=== PATIENT | female | born 1975 | race Caucasian/White ===

== ENCOUNTER → 2024-01-26 19:22 | Outpatient (REF) | payer OTHER, SELFPAY | LOC: MRI 19:22 | PROVIDERS: ATTENDING PHYSICIAN Psychiatry & Neurology Neurology; FAMILY PHYSICIAN Internal Medicine | DX: R90.82 White matter disease, unspecified (principal) | CPT/HCPCS: 70551; 72141; 72146 ==

== ENCOUNTER 2024-05-18 22:28 | Emergency (ER) | payer OTHER, SELFPAY ==
[2024-05-18 22:30] VITALS: BP 160/99
[2024-05-18 22:44] LABS: Urine Albumin Negative (Neg - Trace); Urine Bilirubin Negative (Negative); Urine Character Clear (Clear); Urine Color Yellow; Urine Glucose Negative (Negative); Urine Ketone Negative (Negative); Urine Leukocyte Negative (Negative); Urine Nitrite Negative (Negative); Urine Occult Blood Negative (Negative); Urine Specific Gravity 1.015 (<1.030); Urine Urobilinogen Negative (Neg - 1+)
[2024-05-18 23:28] VITALS: BMI 21.8
[2024-05-18 23:39] LABS: % Basophils 0.5 % (0-2); % Eosinophils 1.4 % (0-6); % Immature Granulocytes 0.3 % (0-0.5); % Lymphocytes 32.1 % (20.5-51.1); % Monocytes 9.8 % (1.7-9.3); % Neutrophils 55.9 % (42.2-75.2); Absolute Eosinophils 0.1 10^3/uL (0-0.7); Absolute Lymphocytes 2.5 10^3/uL (1.2-3.4); Absolute Monocytes 0.8 10^3/uL (0.1-0.6); Absolute Neutrophils 4.3 10^3/uL (1.4-6.5); Hemoglobin 12.8 g/dL (12.0-16.0); Mean Corp Hgb Conc. 36.6 g/dL (33.0-37.0); Mean Corpuscular Hgb 32.7 pg (27.0-31.0); Mean Corpuscular Volume 89.5 fL (81.0-99.0); Mean Platelet Volume 9.2 fL (7.4-10.4); Nucleated Red Blood Cells % 0 %; Platelet Count 257 10^3/uL (130-400); Red Blood Cell Count 3.91 10^6/uL (4.20-5.40); Red Cell Dist. Width 12.6 % (11.5-14.5); White Blood Cell Count 7.7 10^3/uL (4.8-10.8)
[2024-05-18] MEDS: MORPHINE SULFATE 4 MG IV (23:39)
--- NOTE | 2024-05-18 23:39 | ED.GENMED ---
History of Present Illness
<BHARTI Rai - Last Filed: 05/19/24 04:54>
General
Chief Complaint: Flank Pain
Source: patient
Exam Limitations: none
Time Seen by Provider: 05/18/24 23:29
Nursing documentation reviewed up to this point in time: agreed with
History of Present Illness
History of Present Illness:
49 year old female presents for evaluation of R flank pain and N/V. Pt reports that her symptoms began one week ago and have been intermittent over this time. She adds that she has experienced 5 episodes of sudden onset flank pain lasting for
approximately 5-10 minutes over the last week, but at approximately 1900 on 05/18 her flank pain persisted for several hours, prompting her ED arrival. Pt endorses 4 bouts of vomiting accompanying her pain over the last week, but has not vomited on
05/18. Pt has received morphine and states that her pain is currently 0/10. Pt denies dysuria, hematuria, increased frequency, urgency, and hesitancy. She also denies fever, chills, fatigue, CP, SOB, recent back injury, numbness/tingling, and
bowel/bladder incontinence. LMP was 10 days ago per pt.
Past History
<BHARTI Rai - Last Filed: 05/19/24 04:54>
Past History
ED Past Medical History: None
ED Past Surgical History: Other (abdominal plasy, , breast augmentation)
Social History
Tobacco: Non-smoker
Drug: None
Personal:
Living: with family
Review of Systems
<BHARTI Rai - Last Filed: 05/19/24 04:54>
Review of Systems
Allergies reviewed?: Yes
Constitutional: Reports no symptoms
EENT: Reports no symptoms
Respiratory: Reports no symptoms
Cardiac: Reports no symptoms
ABD/GI: Reports nausea and vomiting
: Reports flank pain (right)
Musculoskeletal: Reports back pain (right low back)
Skin: Reports no symptoms
Neurological: Reports no symptoms
Phy Exam
<BHARTI Rai - Last Filed: 05/19/24 04:54>
General Physical Exam
General Presentation: well appearing
General age: appears stated age
General Skin: warm
General Habitus: normal
General Mental: alert
General Hydration: appears well hydrated
Cardiovascular Exam
Cardiovascular Exam: regular rate/rhythm and no murmur
Pulmonary Exam
Pulmonary Exam: lungs clear and no respiratory distress
Gastrointestinal Exam
Gastrointestinal Exam: normal bowel sounds, non tender, non distended, no cva tenderness and no masses
Neurological Exam
Neurological Exam: alert and oriented x3
Musculoskeletal Exam
Musculoskeletal Exam: full ROM
Course
<BHARTI Rai - Last Filed: 05/19/24 04:54>
Orders/Labs/Results
Orders:
Orders
05/18/24 22:38
Urinalysis Reflex To Culture Urgent
Date Specimen was Collected: 05/18/24
Time Specimen was Collected: 22:33
05/18/24 23:29
Test Result ONCE
05/18/24 23:32
CBC/With Diff [Complete Blood Count/With Diff] Urgent
CMP [Comprehensive Metabolic Panel] Urgent
HCG, Serum Qualitative Screen Urgent
Lipase Urgent
05/18/24 23:36
Morphine Sulfate 4 mg .ROUTE .STK-MED ONE
Ondansetron Injectable [Zofran] 4 mg .ROUTE .STK-MED ONE
05/18/24 23:39
Morphine Sulfate 4 mg IV NOW STA
05/18/24 23:40
0.9% Sodium Chloride 1000 ml [Nss] 1,000 ml IV BOLUS
Ondansetron Injectable [Zofran] 4 mg IV NOW STA
05/19/24 00:03
CT Abd/pel Without Iv Or Oral Urgent
Comment:
Reason For Exam: R flank pain
05/19/24 01:32
0.9% Sodium Chloride 1000 ml [Nss] 1,000 ml IV BOLUS
US Pelvis Only (non-obstetric) Urgent
Comment:
Reason For Exam: right lower pain
05/19/24 03:59
Acetaminophen [Tylenol] 1,000 mg PO NOW STA
Abnormal Lab Results
05/18/24
23:32
RBC 3.91 L 10^6/uL
(4.20-5.40)
Hct 35.0 L %
(37.0-47.0)
MCH 32.7 H pg
(27.0-31.0)
Absolute Monos (auto) 0.8 H 10^3/uL
(0.1-0.6)
Monocytes % 9.8 H %
(1.7-9.3)
BUN 25 H mg/dl
(7-17)
05/18/24 23:32
05/18/24 23:32
Vital Signs
Initial and Last Documented VS:
Initial Vital Signs
Temp Pulse Resp BP Pulse Ox
98.0 F 70 18 160/99 99
05/18/24 22:30 05/18/24 22:30 05/18/24 22:30 05/18/24 22:30 05/18/24 22:30
Last Documented Vital Signs
Temp Pulse Resp BP Pulse Ox
98.0 F 68 16 131/86 99
05/18/24 22:30 05/19/24 04:27 05/19/24 04:27 05/19/24 04:27 05/19/24 04:27
<Pierre Clemens, - Last Filed: 05/19/24 04:26>
Orders/Labs/Results
Orders:
Orders
05/18/24 22:38
Urinalysis Reflex To Culture Urgent
Date Specimen was Collected: 05/18/24
Time Specimen was Collected: 22:33
05/18/24 23:29
Test Result ONCE
05/18/24 23:32
CBC/With Diff [Complete Blood Count/With Diff] Urgent
CMP [Comprehensive Metabolic Panel] Urgent
HCG, Serum Qualitative Screen Urgent
Lipase Urgent
05/18/24 23:36
Morphine Sulfate 4 mg .ROUTE .STK-MED ONE
Ondansetron Injectable [Zofran] 4 mg .ROUTE .STK-MED ONE
05/18/24 23:39
Morphine Sulfate 4 mg IV NOW STA
05/18/24 23:40
0.9% Sodium Chloride 1000 ml [Nss] 1,000 ml IV BOLUS
Ondansetron Injectable [Zofran] 4 mg IV NOW STA
05/19/24 00:03
CT Abd/pel Without Iv Or Oral Urgent
Comment:
Reason For Exam: R flank pain
05/19/24 01:32
0.9% Sodium Chloride 1000 ml [Nss] 1,000 ml IV BOLUS
US Pelvis Only (non-obstetric) Urgent
Comment:
Reason For Exam: right lower pain
05/19/24 03:59
Acetaminophen [Tylenol] 1,000 mg PO NOW STA
Abnormal Lab Results
05/18/24
23:32
RBC 3.91 L 10^6/uL
(4.20-5.40)
Hct 35.0 L %
(37.0-47.0)
MCH 32.7 H pg
(27.0-31.0)
Absolute Monos (auto) 0.8 H 10^3/uL
(0.1-0.6)
Monocytes % 9.8 H %
(1.7-9.3)
BUN 25 H mg/dl
(7-17)
05/18/24 23:32
05/18/24 23:32
Vital Signs
Initial and Last Documented VS:
Initial Vital Signs
Temp Pulse Resp BP Pulse Ox
98.0 F 70 18 160/99 99
05/18/24 22:30 05/18/24 22:30 05/18/24 22:30 05/18/24 22:30 05/18/24 22:30
Last Documented Vital Signs
Temp Pulse Resp BP Pulse Ox
98.0 F 68 16 131/86 99
05/18/24 22:30 05/19/24 04:27 05/19/24 04:27 05/19/24 04:27 05/19/24 04:27
<BHARTI Rai - Last Filed: 05/19/24 04:54>
MDM/Problems Addressed
Differential Diagnosis Includes:
ovarian cyst, nephrolithiasis
<BHARTI Rai - Last Filed: 05/19/24 04:54>
*Critical Care Note
Total Time (30-74mins, 75-104mins- exclusive of procedures): Not Applicable
<Pierre Clemens DO - Last Filed: 05/19/24 04:26>
Update Note
Update Note:
Decreased sensitivity in the evaluation of the abdominal viscera due to lack of IV contrast.
No definite CT findings to account for the reported pain/symptoms.
4.9 cm right ovarian cyst. Considered targeted ultrasound.
No evidence of hydroureteronephrosis or obstructing stone. No signficant perinephric fat stranding.
Again seen, left-sided loops of colon. Colon loops are filled with inspissated stool suggesting constipation.
No appendicitis or colitis.
No evidence of small bowel obstruction.
No free fluid or free air.
IUD.
No AAA.
Cyst at the right lung base
Case finalized at 130am ET.
ULTRASOUND PELVIS
IMPRESSION:
4.8 cm right ovarian cyst. No evidence of torsion.
Unremarkable left ovary.
No significant free fluid.
Unremarkable appearance of the uterus
ED Attending Note
<BHARTI Rai - Last Filed: 05/19/24 04:54>
-
Portions of this chart may have been created with voice recognition software.� Occasional wrong word or��sound alike� substitutions may have occurred due to the inherent limitations of voice recognition software.
Discharge Plan
Departure
Patient Disposition: Home (Routine Discharge)
Date of Disposition: 05/19/24
Time of Disposition: 04:26
Patient with high blood pressure during this ER visit?: Yes
Condition: Good
Discharge Problem:
Ovarian cyst, Abdominal pain
Instructions: Ovarian Cyst ED, Abdominal Pain, BLOOD PRESSURE
Prescriptions:
New
diclofenac sodium 75 mg tablet,delayed release (DR/EC)
75 mg PO BID Qty: 10 0RF
No Action
bupropion HCl [Wellbutrin SR] 200 MG tablet sustained-release 12 hr
200 mg PO DAILY
Referrals:
[facility] [Outside]
PRIVATE,PHYSICIAN [Family Provider] -
Activity Restrictions/Additional Instructions:
Please follow up with your [employer] as discussed
It was a pleasure meeting you and taking part in your care. We hope for your continued healing and wellness.
Please read discharge instructions in their entirety. However, they are for general education and may not describe your exact diagnosis at discharge. Information on your ER visit and medical conditions were discussed with you along with appropriate
follow up information...
If indicated, please take your medications as instructed and indicated on discharge paperwork.
Please schedule a follow up appointment as directed. Call to schedule an appointment
Please return to the emergency department with ANY change in, persisting, or worsening of symptoms. If any of your symptoms do not improve, or persist, or become more severe within 6-12 hours, please return to the emergency department for further
care.
Please return to the emergency department if you develop a headache, neck pain/stiffness, fever greater than 100.4F, chest pain, shortness of breath, persistent nausea, vomiting, slurred speech, difficulty walking, numbness/tingling, weakness, signs
of infection or any other symptoms that are worrisome to you.
If you have any questions or concerns please do not hesitate to call the Hospital at or E-mail me directly at [email or web address]
Interventions
Interventions:
*Risk Screen - Suicide Last Done: 05/18/24 22:30
*General Assessment Last Done: 05/18/24 22:30
*Neglect/Abuse Screening Last Done: 05/18/24 22:30
ED- Fall Risk Assessment Last Done: 05/18/24 23:44
*ED COVID-19 Vaccine History Last Done: 05/19/24 03:44
*Nursing Disposition Last Done: 05/19/24 04:28
UB-Tzltrx-Fzgyutsazz Assessment Last Done: 05/19/24 04:10
ED-Female Genitourinary Assessment Last Done: 05/19/24 04:10
Discharge Date and Time
Discharge Date/Time: 05/19/24 04:29
Print Language: JAPANESE
[2024-05-18] MEDS: NSS 1000 IV (23:41)
[2024-05-18] MEDS: ZOFRAN 4 MG IV (23:41)
[2024-05-18 23:44] VITALS: BP 131/86
[2024-05-18 23:57] LABS: HCG, Serum Qualitative Screen Negative
[2024-05-19] LABS: ALT (SGPT) 27 U/L (0-35); AST (SGOT) 29 U/L (14-36); Albumin 3.9 g/dl (3.5-5.0); Alkaline Phosphatase 84 U/L (38-126); Blood Urea Nitrogen 25 mg/dl (7-17); Calcium 9.3 mg/dl (8.4-10.2); Carbon Dioxide 30 mmol/L (22-30); Chloride 100 mmol/L (98-107); Estimated Creatinine Clearance 68 ml/min; Glucose 76 mg/dl (70-99); Lipase 120 U/L (23-300); Potassium 4.1 mmol/L (3.5-5.1); Sodium 135 mmol/L (135-145); Total Bilirubin 0.4 mg/dl (0.2-1.3); Total Protein 6.5 g/dl (6.3-8.2); eGFR > 60.00
[2024-05-19] MEDS: NSS 1000 IV (02:25)
[2024-05-19 03:41] VITALS: BP 126/83
[2024-05-19] MEDS: TYLENOL 1000 MG PO (04:07)
[2024-05-19 04:27] VITALS: BP 131/86
== END 2024-05-19 04:29 | disposition home or self-care (01) ==
LOC: EMR 22:28
PROVIDERS: Emergency Medicine; EMERGENCY PHYSICIAN Student in an Organized Health Care Education/Training Program
DX: N83.201 Unspecified ovarian cyst, right side (principal); R10.9 Unspecified abdominal pain; R11.2 Nausea with vomiting, unspecified; M54.50 Low back pain, unspecified; R03.0 Elevated blood-pressure reading, without diagnosis of hypertension
CPT/HCPCS: 99284; 96374; 96375; 96361; 74176; 76856; 80053; 81003; 83690; 84703; 85025

== ENCOUNTER → 2025-03-02 07:40 | Outpatient (REF) | payer OTHER, SELFPAY | LOC: HWWDC 07:40 | PROVIDERS: ATTENDING PHYSICIAN Obstetrics & Gynecology | DX: Z12.31 Encounter for screening mammogram for malignant neoplasm of breast (principal); R10.2 Pelvic and perineal pain | CPT/HCPCS: 76830; 76856; 77063; 77067 ==